=== PATIENT | female | born 1990 | race Caucasian/White ===

== ENCOUNTER 2017-08-06 11:14 | Emergency (ER) | payer MEDICAID ==
[~2017-08-06] VITALS: Ht 170.2 cm; Wt 140.3 kg
[~2017-08-06 11:14] MED LIST: PRENAT PO
[2017-08-06 11:18] VITALS: Ht 170.2 cm; Wt 140.3 kg
--- NOTE | 2017-08-06 11:42 | ERD ---
ER Documentation Chief Complaint Chief Complaint 12 WKS , TOLD BY [facility], DENIES PAIN OR VAG BLEEDING HPI 27-year-old female who is A0 with last menstrual period on May 03 comes emergency department 7 days after being told she had a demise by her doctor. She comes in with a piece of paper from Dr. Jd Davenport. She states that there was no heartbeat seen on ultrasound and since then she has not had any pelvic pain, vaginal bleeding. She is asymptomatic, has not had any fevers or chills, dizziness. ROS All systems reviewed and are negative except as per history of present illness. Medications Home Meds Active Scripts Cephalexin* (Keflex*) 500 Mg Capsule, 500 MG PO TID for 7 Days, CAP Prov:MAYTE ALAS PA-C 08/06/17 Reported Medications Multivit/Min/Fol Ac/Iron/Pren* ( S*) 1 Tab Tab, 1 TAB PO DAILY, TAB 12/26/14 Allergies Allergies: Coded Allergies: No Known Allergies (Verified Allergy, Mild, 03/16/10) PMhx/Soc History of Surgery: No Anesthesia Reaction: No Hx Neurological Disorder: No Hx Respiratory Disorders: No Hx Cardiac Disorders: No Hx Psychiatric Problems: No Hx Miscellaneous Medical Probl: No Hx Alcohol Use: No Hx Substance Use: No Hx Tobacco Use: No Physical Exam Vitals Vital Signs Date Time Temp Pulse Resp B/P Pulse Ox O2 Delivery O2 Flow Rate FiO2 08/06/17 11:18 98.6 71 20 135/71 99 Physical Exam General: Well-developed, well-nourished. The patient appears in no acute distress. HEENT: Head is normocephalic, atraumatic. No scleral icterus. Neck: Supple. Nontender. Lungs: Clear to auscultation. Normal air movement. Heart: Regular rate and rhythm. S1 and S2 are normal. No murmurs, gallops, or rubs. Abdomen: Soft, nontender, nondistended. Bowel sounds are normoactive. Extremities: No clubbing or cyanosis. Normal pulses. Moving extremities x 4. No weakness. Neurologic: Alert and oriented 3. No focal deficits. Skin: Normal turgor. No rash or lesions. Result Diagram: 08/06/17 1210 Results 24 hrs Laboratory Tests Test 08/06/17 12:05 08/06/17 12:10 Urine Color YELLOW Urine Clarity CLEAR Urine pH 6.0 Urine Specific [place] 1.021 Urine Ketones NEGATIVEmg/dL Urine Nitrite NEGATIVEmg/dL Urine Bilirubin NEGATIVEmg/dL Urine Urobilinogen NEGATIVEmg/dL Urine Leukocyte Esterase 1+Romulo/ul Urine Microscopic RBC 7/HPF Urine Microscopic WBC 7/HPF Urine Squamous Epithelial Cells FEW/HPF Urine Bacteria FEW/HPF Urine Hemoglobin NEGATIVEmg/dL Urine Glucose NEGATIVEmg/dL Urine Total Protein NEGATIVEmg/dl White Blood Count 8.210^3/ul Red Blood Count 4.7510^6/ul Hemoglobin 10.7g/dl Hematocrit 36.2% Mean Corpuscular Volume 76.2fl Mean Corpuscular Hemoglobin 22.5pg Mean Corpuscular Hemoglobin Concent 29.6g/dl Red Cell Distribution Width 17.2% Platelet Count 55747^3/UL Mean Platelet Volume 9.0fl Neutrophils % 60.7% Lymphocytes % 28.1% Monocytes % 8.0% Eosinophils % 2.6% Basophils % 0.4% Nucleated Red Blood Cells % 0.0/100WBC Neutrophils # 5.010^3/ul Lymphocytes # 2.310^3/ul Monocytes # 0.710^3/ul Eosinophils # 0.210^3/ul Basophils # 0.010^3/ul Nucleated Red Blood Cells # 0.010^3/ul Beta HCG, Quantitative 1972.6mIU/ml DIAGNOSTIC IMAGING REPORT Patient: ARJUN BLACK : 1990 Age: 27 Sex: F MR #: [id number] DOS: 08/06/17 1135 Ordering MD: MAYTE ALAS PA-C Location: [facility] Room/Bed: PROCEDURE: OB Ultrasound. CLINICAL INDICATION: Positive test. Vaginal bleeding. TECHNIQUE: Ultrasound of the pelvis was performed with transabdominal and transvaginal sonography in the axial and sagittal planes. COMPARISON: No prior study is available for comparison. FINDINGS: There is a single intrauterine gestational sac. pole and yolk sac are not visualized. Mean sac diameter is 1.37 cm. Menstrual age by ultrasound dates is 6 weeks 0 days. The right ovary appears normal measuring 3.2 x 3.5 x 2.4 cm. The left ovary appears normal measuring 2.1 x 2.5 x 1.4 cm. Color Doppler and pulsed Doppler sonography demonstrate normal flow to the ovaries. There is no other pelvic mass or free fluid. IMPRESSION: 1. Single intrauterine gestational sac with a mean sac diameter of 1.37 cm. pole and yolk sac are not present indicating probable failed . Due to the small size of the sac, follow-up ultrasound in 7 days is advised. 2. Otherwise unremarkable study. RPTAT: QQ .Kenny Hawk MD, MD Date Time Electronically viewed and signed by .Kenny Hawk MD, MD on 08/06/2017 13:11 .R/ CC: MAYTE ALAS PA-C Procedures/MDM 27-year-old female comes in with a history of an ultrasound that does not show evidence of heart tones, and it has been about 11 days and she comes to emergency department because she was not told with follow-up care with the. Patient's ultrasound today shows an intrauterine gestational sac is small, likely indicative demise. She does not have any symptoms, she does not have any history of vaginal bleeding or pelvic pain. Symptoms are not consistent with endometritis, ectopic . She is given copies of her ultrasound and her blood work, have asked her to follow-up with her doctor, and to schedule a D&C. She is also given ER return precautions including bleeding and pelvic pain. Given that she has had an ultrasound previously, I do not believe the patient has an ectopic , this is likely demise given the irregularity of the gestational sac today. She was found to have leukocyte esterase 1+ with 7 white blood cells were treated for UTI. Departure Diagnosis: Primary Impression: demise Additional Impression: UTI (urinary tract infection) Condition: MAYTE Blackman PA-C Aug 06, 2017 11:42
[2017-08-06 12:24] LABS: ADD UMIC YES; UR ASCORBIC ACID 40 mg/dL (NEGATIVE); UR BACTERIA FEW /HPF (NONE SEEN); UR BILIRUBIN (Dip) NEGATIVE (NEGATIVE); UR BLOOD (Dip) NEGATIVE (NEGATIVE); UR CLARITY CLEAR (CLEAR); UR COLOR YELLOW (YELLOW); UR GLUCOSE (Dip) NEGATIVE (NEGATIVE); UR KETONES (Dip) NEGATIVE (NEGATIVE); UR LEUKOCYTE ESTERASE (Dip) 1+ Leu/ul (NEGATIVE); UR NITRITE (Dip) NEGATIVE (NEGATIVE); UR RBC 7 /HPF (0-5); UR SPECIFIC GRAVITY (Dip) 1.021 (1.003-1.030); UR SQUAMOUS EPITHELIAL CELL FEW /HPF (FEW); UR TOTAL PROTEIN (Dip) NEGATIVE (NEGATIVE); UR UROBILINOGEN (Dip) NEGATIVE (NEGATIVE)
[2017-08-06 12:29] LABS: BASOPHILS % 0.4 % (0.0-2.0); EOSINOPHILS # 0.2 10^3/ul (0.0-0.5); EOSINOPHILS % 2.6 % (0.0-7.0); HEMATOCRIT 36.2 % (37.0-47.0); HEMOGLOBIN 10.7 g/dl (12.0-16.0); LYMPHOCYTES # 2.3 10^3/ul (0.8-2.9); LYMPHOCYTES % 28.1 % (15.0-51.0); MEAN CORPUSCULAR HEMOGLOBIN 22.5 pg (29.0-33.0); MEAN CORPUSCULAR HGB CONC 29.6 g/dl (32.0-37.0); MEAN CORPUSCULAR VOLUME 76.2 fl (82.0-101.0); MONOCYTE # 0.7 10^3/ul (0.3-0.9); NEUTROPHILS % 60.7 % (39.0-77.0); PLATELET COUNT 359 10^3/UL (140-415); RED BLOOD COUNT 4.75 10^6/ul (4.20-5.40); RED CELL DISTRIBUTION WIDTH 17.2 % (11.5-14.5); WHITE BLOOD COUNT 8.2 10^3/ul (4.8-10.8)
--- NOTE | 2017-08-06 13:12 | RADRPT ---
PROCEDURE: OB Ultrasound. CLINICAL INDICATION: Positive test. Vaginal bleeding. TECHNIQUE: Ultrasound of the pelvis was performed with transabdominal and transvaginal sonography in the axial and sagittal planes. COMPARISON: No prior study is available for comparison. FINDINGS: There is a single intrauterine gestational sac. pole and yolk sac are not visualized. Mean sac diameter is 1.37 cm. Menstrual age by ultrasound dates is 6 weeks 0 days. The right ovary appears normal measuring 3.2 x 3.5 x 2.4 cm. The left ovary appears normal measuring 2.1 x 2.5 x 1.4 cm. Color Doppler and pulsed Doppler sonography demonstrate normal flow to the ovaries. There is no other pelvic mass or free fluid. IMPRESSION: 1. Single intrauterine gestational sac with a mean sac diameter of 1.37 cm. pole and yolk sac are not present indicating probable failed . Due to the small size of the sac, follow-up u ltrasound in 7 days is advised. 2. Otherwise unremarkable study. RPTAT: QQ .Kenny Hawk MD, MD Date Time Electronically viewed and signed by .Kenny Hawk MD, on 08/06/2017 13:11 .R/
[2017-08-06] MEDS ORDERED: CEPH-443 PO (13:38)
== END 2017-08-06 14:14 | disposition home or self-care (01) ==
LOC: FTE 11:14
DX: O02.1 Missed abortion (principal); O23.41 Unspecified infection of urinary tract in pregnancy, first trimester
CPT/HCPCS: 76801; 76817; 81001; 84702; 85025; 86900; 86901; Z7502

== ENCOUNTER 2017-08-14 09:49 | Emergency (ER) | payer MEDICAID ==
[~2017-08-14] VITALS: Ht 172.7 cm; Wt 121.7 kg
[~2017-08-14 09:49] MED LIST changes: +CEPH-443 PO
[2017-08-14 10:01] VITALS: Ht 172.7 cm; Wt 121.7 kg
--- NOTE | 2017-08-14 11:01 | ERD ---
ER Documentation Chief Complaint Chief Complaint vaginal bleeding HPI 27-year-old female, who is was told that and I will [facility] she had a spontaneous on this past Sunday which was 4 days ago and is here because she has had vaginal itchiness, foul order. The patient was seen here on August 06 and was found to have a single intrauterine gestational sac but no evidence of yolk sac, pole, indicative of likely a failed . She had a spontaneous and has had some bleeding since then. She states that she also passed several pieces of clots. She has not had any fevers , chills. She denies pelvic pain. ROS All systems reviewed and are negative except as per history of present illness. Medications Home Meds Active Scripts Cephalexin* (Keflex*) 500 Mg Capsule, 500 MG PO TID for 7 Days, CAP Prov:MAYTE ALAS PA-C 08/06/17 Reported Medications Multivit/Min/Fol Ac/Iron/Pren* ( S*) 1 Tab Tab, 1 TAB PO DAILY, TAB 12/26/14 Allergies Allergies: Coded Allergies: No Known Allergies (Verified Allergy, Mild, 03/16/10) PMhx/Soc History of Surgery: Yes (Cholecystectomy) Anesthesia Reaction: No Hx Neurological Disorder: No Hx Respiratory Disorders: No Hx Cardiac Disorders: No Hx Psychiatric Problems: No Hx Miscellaneous Medical Probl: Yes (Obesity) Hx Alcohol Use: No Hx Substance Use: No Hx Tobacco Use: No Physical Exam Vitals Vital Signs Date Time Temp Pulse Resp B/P Pulse Ox O2 Delivery O2 Flow Rate FiO2 08/14/17 13:19 97.6 67 20 102/55 100 Room Air 08/14/17 10:01 98.0 84 18 154/69 100 Physical Exam General: Well-developed, well-nourished. The patient appears in no acute distress. HEENT: Head is normocephalic, atraumatic. No scleral icterus. Neck: Supple. Nontender. Lungs: Clear to auscultation. Normal air movement. Heart: Regular rate and rhythm. S1 and S2 are normal. No murmurs, gallops, or rubs. Abdomen: Soft, nontender, nondistended. Bowel sounds are normoactive. : There is some vaginal bleeding, no clots, no hemorrhaging, no abnormal vaginal discharge, there is no CMT tenderness. Extremities: No clubbing or cyanosis. Normal pulses. Moving extremities x 4. No weakness. Neurologic: Alert and oriented 3. No focal deficits. Skin: Normal turgor. No rash or lesions. Result Diagram: 08/14/17 1108 08/14/17 1108 Results 24 hrs Laboratory Tests Test 08/14/17 11:08 08/14/17 11:10 White Blood Count 10.210^3/ul Red Blood Count 3.0610^6/ul Hemoglobin 6.9g/dl Hematocrit 23.7% Mean Corpuscular Volume 77.5fl Mean Corpuscular Hemoglobin 22.5pg Mean Corpuscular Hemoglobin Concent 29.1g/dl Red Cell Distribution Width 16.9% Platelet Count 64947^3/UL Mean Platelet Volume 9.5fl Neutrophils % % Segmented Neutrophils % (Manual) 69% Band Neutrophils % (Manual) 2% Lymphocytes % % Lymphocytes % (Manual) 23% Monocytes % % Monocytes % (Manual) 3% Eosinophils % % Eosinophils % (Manual) 3% Basophils % % Nucleated Red Blood Cells % 2% Neutrophils # 10^3/ul Neutrophils # (Manual) 7.110^3/ul Band Neutrophils # 0.210^3/ul Absolute Lymphocytes (Manual) 2.310^3/ul Lymphocytes # 10^3/ul Monocytes # 10^3/ul Absolute Monocytes (Manual) 0.310^3/ul Eosinophils # 10^3/ul Basophils # 10^3/ul Nucleated Red Blood Cells # 10^3/ul Platelet Estimate NORMAL Polychromasia 3+ Hypochromasia 2+ Anisocytosis 2+ Microcytosis 2+ Sodium Level 143mmol/L Potassium Level 4.5mmol/L Chloride Level 109mmol/L Carbon Dioxide Level 24mmol/L Anion Gap 15 Blood Urea Nitrogen 7mg/dl Creatinine 0.73mg/dl Glucose Level 92mg/dl Calcium Level 8.9mg/dl Beta HCG, Quantitative 17.8mIU/ml Urine Color YELLOW Urine Clarity CLEAR Urine pH 6.0 Urine Specific [place] 1.016 Urine Ketones NEGATIVEmg/dL Urine Nitrite NEGATIVEmg/dL Urine Bilirubin NEGATIVEmg/dL Urine Urobilinogen NEGATIVEmg/dL Urine Leukocyte Esterase NEGATIVELeu/ul Urine Microscopic RBC 9/HPF Urine Microscopic WBC 1/HPF Urine Hemoglobin 2+mg/dL Urine Glucose NEGATIVEmg/dL Urine Total Protein NEGATIVEmg/dl Current Medications Medications (Trade) Dose Ordered Sig/Jann Route PRN Reason Start Time Stop Time Status Last Admin Dose Admin Sodium Chloride 1,000 ml @ 1,000 mls/hr Q1H STAT IV 08/14/17 11:45 08/14/17 12:44 DC 08/14/17 13:02 Sodium Chloride (NS) 250 ml @ 0 mls/hr Q0M ONCE IV 08/14/17 12:06 08/14/17 12:08 DC Misoprostol (Cytotec) 200 mcg ONCE ONCE PO 08/14/17 12:30 08/14/17 12:31 DC DIAGNOSTIC IMAGING REPORT Patient: ARJUN BLACK : 1990 Age: 27 Sex: F MR #: [id number] DOS: 08/14/17 0000 Ordering MD: MAYTE ALAS PA-C Location: [facility] Room/Bed: PROCEDURE: Pelvic ultrasound. CLINICAL INDICATION: Pelvic pain, history spontaneous . TECHNIQUE: Wallace scale, color doppler, spectral doppler ultrasound of the pelvis was performed with transabdominal and transvaginal transducers. COMPARISON: US PELVIS 08/06/2017 FINDINGS: Uterus: Position: Anteverted. Normal myometrial echogenicity. Normal appearance of the endometrium. Ovaries: Normal appearing right ovary. Normal appearing left ovary. No adnexal masses. Free fluid: None. Measurements: Endometrium (cm): 1.1 Uterus (cm): 10.1 x 5.4 x 6.1 Right ovary (cm): 4.1 x 2.2 x 2.4 Left ovary (cm): 3.6 x 1.6 x 2.4 IMPRESSION: Normal examination. RPTAT: AADD .Devan Coles MD, Date Time Electronically viewed and signed by .Devan Coles MD, on 08/14/2017 11:56 .B/ CC: MAYTE ALAS PA-C Procedures/MDM ED course: Patient had blood work, and ultrasound initiated, she was found to have a hemoglobin of 6.9, there was difficulty with IV access so a midline was placed, the patient was transfused and given 2 units, she was also given normal saline intravenously 1 L. She is given Cytotec 200 mcg by mouth here. Consult: Dr Arias, labor is food operations manager saw the patient, states that there is no evidence of free fluid, because endometrium is at 1.1 cm patient is not a candidate for D&C. Advised to discharge after transfusing, and discharged with Cytotec. James decision makin-year-old female presents with a history of spontaneous at an outside [place], she was told was 4 days ago and comes in with vaginal bleeding as well as foul odor. The patient's pelvic examination shows normal bleeding as expected, there is no hemorrhaging, no signs of PID or cervicitis. She will be treated for yeast vaginitis given the itching. Discussed the vaginal odor with food operations manager, who has low suspicion for endometritis. I spoke with Dr. Arias, who came and saw the patient, although the hemoglobin is 6.9, he reports that because endometrium is only at 1.1 cm, the patient is not a surgical candidate for D&C. He was advised that the patient should be given 2 units transfusion, and discharged with Cytotec 200 mcg every 6 for 5 days. Patient is hemodynamically stable, there is no tachycardia, and blood pressure is normal, and is stable for discharge. The case was reviewed and discussed with Dr. Weir who agrees with the plan of care including labs, treatment, and advanced imaging as appropriate. Departure Diagnosis: Primary Impression: Anemia Additional Impression: Spontaneous Condition: MAYTE Blackman PA-C Aug 14, 2017 11:01
[2017-08-14 11:26] LABS: ADD UMIC YES; UR ASCORBIC ACID NEGATIVE (NEGATIVE); UR BILIRUBIN (Dip) NEGATIVE (NEGATIVE); UR BLOOD (Dip) 2+ mg/dL (NEGATIVE); UR CLARITY CLEAR (CLEAR); UR COLOR YELLOW (YELLOW); UR GLUCOSE (Dip) NEGATIVE (NEGATIVE); UR KETONES (Dip) NEGATIVE (NEGATIVE); UR LEUKOCYTE ESTERASE (Dip) NEGATIVE Leu/ul (NEGATIVE); UR NITRITE (Dip) NEGATIVE (NEGATIVE); UR RBC 9 /HPF (0-5); UR SPECIFIC GRAVITY (Dip) 1.016 (1.003-1.030); UR TOTAL PROTEIN (Dip) NEGATIVE (NEGATIVE); UR UROBILINOGEN (Dip) NEGATIVE (NEGATIVE)
[2017-08-14 11:34] LABS: ABNORMAL IP MESSAGE 1; HEMATOCRIT 23.7 % (37.0-47.0); MEAN CORPUSCULAR HEMOGLOBIN 22.5 pg (29.0-33.0); MEAN CORPUSCULAR HGB CONC 29.1 g/dl (32.0-37.0); MEAN CORPUSCULAR VOLUME 77.5 fl (82.0-101.0); MEAN PLATELET VOLUME 9.5 fl (7.4-10.4); PLATELET COUNT 401 10^3/UL (140-415); RED BLOOD COUNT 3.06 10^6/ul (4.20-5.40); RED CELL DISTRIBUTION WIDTH 16.9 % (11.5-14.5); WHITE BLOOD COUNT 10.2 10^3/ul (4.8-10.8)
[2017-08-14 11:39] LABS: POSITIVE DIFF @See below
[2017-08-14 11:41] LABS: HEMOGLOBIN 6.9 g/dl (12.0-16.0)
[2017-08-14 11:44] LABS: CALCIUM 8.9 mg/dl (8.4-10.2); CREATININE 0.73 mg/dl (0.44-1.00); POTASSIUM 4.5 mmol/L (3.5-5.1)
[2017-08-14] MEDS ORDERED: SOD CHLORIDE 0.9% 1,000 ML IV STA (11:45)
--- NOTE | 2017-08-14 11:56 | RADRPT ---
PROCEDURE: Pelvic ultrasound. CLINICAL INDICATION: Pelvic pain, history spontaneous . TECHNIQUE: Wallace scale, color doppler, spectral doppler ultrasound of the pelvis was performed with transabdominal and transvaginal transducers. COMPARISON: US PELVIS 08/06/2017 FINDINGS: Uterus: Position: Anteverted. Normal myometrial echogenicity. Normal appearance of the endometrium. Ovaries: Normal appearing right ovary. Normal appearing left ovary. No adnexal masses. Free fluid: None. Measurements: Endometrium (cm): 1.1 Uterus (cm): 10.1 x 5.4 x 6.1 Right ovary (cm): 4.1 x 2.2 x 2.4 Left ovary (cm): 3.6 x 1.6 x 2.4 IMPRESSION: Normal examination. RPTAT: AADD .Devan Coles MD, Date Time Electronically viewed and signed by .Devan Coles MD, on 08/14/2017 11:56 .B/
[2017-08-14] MEDS ORDERED: SOD CHLORIDE 0.9% 250 ML IV ONE (12:06)
--- NOTE | 2017-08-14 12:22 | QN ---
Documentation Comment Consult: Thank you for consulting with us 27 yo s/p SAB ,currently minimum bleeding.No abdominal pain or tenderness , VS stable(Mildly tachy 100 ) BP 150/80 Ultrasound showed no free fluid EMT 1.1cm B-HCG went down from 1000 to 17 --->I do recommend cytotec 200 microgram po q6h for 5 days --->If patient feels anemic symptoms ,1-2 units PRBC recommended --->if she has any heavy vaginal bleeding any andominal pain any new symptoms , please let the Engineering Equipment Operator team know You can access us at [phone] Thank you DESHAWN SKINNER M.D. Aug 14, 2017 12:22
[2017-08-14] MEDS ORDERED: MISOPROSTOL 200 MCG TAB PO ONE (12:30)
[2017-08-14 12:57] LABS: ANISOCYTOSIS 2+ (0-0); EOSINOPHILS % (M) 3 % (0-7); ERYTHROBLAST% (NRBC) (M) 2 % (0-0); HYPOCHROMASIA 2+ (0-0); MICROCYTOSIS 2+ (0-0); MONOCYTES % (M) 3 % (0-11); PLATELET ESTIMATE NORMAL; POLYCHROMASIA 3+ (0-0)
--- NOTE | 2017-08-14 13:36 | QN ---
Documentation Comment I was called back to fast track to evaluate this patient for vaginal bleeding and anemia. This patient did have a recent spontaneous . She was found to be anemic. We did contact OB and spoke to Dr. bales who states that this patient can be discharged after receiving p.o. medications and 2 units of packed red blood cells. This patient is hemodynamically stable, she will be discharged after her transfusion is complete. BALA GLASS DO Aug 14, 2017 13:36
[2017-08-14] MEDS ORDERED: FER325 PO (14:34)
[2017-08-14] MEDS ORDERED: MISO100T PO (14:34)
[2017-08-14] MEDS ORDERED: CLOT21CR7 VG (16:16)
[2017-08-14] MEDS ORDERED: ACETAMINOPHEN 325 MG TAB PO ONE (18:00)
[2017-08-14 18:10] VITALS: BP 130/75; PULSE 75; RESP 17; TEMP 98.6
== END 2017-08-14 20:30 | disposition home or self-care (01) ==
LOC: FTE 09:49 → E/R 20:30
DX: D64.9 Anemia, unspecified (principal); E66.9 Obesity, unspecified; R10.2 Pelvic and perineal pain; Z68.41 Body mass index [BMI] 40.0-44.9, adult
CPT/HCPCS: 36415; 36430; 76830; 76856; 80048; 81001; 84702; 85025; 86850; 86900; 86901; 86920; 87591; J7030; J7040; P9016; Z7502; Z7610

== ENCOUNTER 2017-11-26 10:08 | Emergency (ER) | END 2017-11-26 14:11 | disposition home or self-care (01) ==

== ENCOUNTER 2018-04-06 11:19 | Emergency (ER) | END 2018-04-06 14:45 | disposition home or self-care (01) ==